=== PATIENT | female | born 1985 | race Caucasian/White ===

== ENCOUNTER 2022-05-24 13:48 | Emergency (ER) | payer MEDICAID ==
[~2022-05-24] VITALS: Ht 162.6 cm; Wt 80.0 kg
[2022-05-24] MEDS ORDERED: ACETAMINOPHEN 325MG TABLET PO ONE (19:00)
[2022-05-24] MEDS ORDERED: CEFTRIAXONE SODIUM 1 G/VIAL IM ONE (19:00)
[2022-05-24] MEDS ORDERED: BACITRACIN ZINC OINT UDPKT TOP ONE (19:00)
[2022-05-24] MEDS ORDERED: LIDOCAINE HCL/EPINEPHRINE 1%-EPI 1:100,000 20 ML VIAL INFIL ONE (19:00)
[2022-05-24] MEDS ORDERED: LIDOCAINE HCL 1% 20ML VIAL (Pyxis) INJ INFIL ONE (19:00)
[2022-05-24] MEDS ORDERED: IBUP-2028 MT (20:05)
[2022-05-24] MEDS ORDERED: SULF1TAB48 MT (20:05)
[2022-05-24] MEDS ORDERED: CEPH500C2 MT (20:05)
[2022-05-24 20:45] VITALS: BP 130/86
== END 2022-05-24 20:50 | disposition home or self-care (01) ==
LOC: ER 13:48
DX: N61.1 Abscess of the breast and nipple (principal); Z98.890 Other specified postprocedural states; Z79.899 Other long term (current) drug therapy
CPT/HCPCS: 10060; 81025; 96372; 99283; J0696; J3490